=== PATIENT | male | born 1955 | race Caucasian/White ===

== ENCOUNTER 2017-09-19 12:30 | Emergency (ER) | payer BC, OTHER ==
[2017-09-19 12:47] VITALS: TEMP 98.5; BMI 31.4
[2017-09-19] MEDS ORDERED: KETOROLAC TROMETHAMINE 30 MG/1 ML VIAL IM ONE (15:23)
--- NOTE | 2017-09-19 15:45 | PDOC ---
History of Present Illness - General Chief Complaint: Injury Stated Complaint: LEFT LEG PAIN S/P TWISTED ON FRIDAY Time Seen by Provider: 09/19/17 12:40 - History of Present Illness Initial Comments: 09/19/17 15:39 "The patient is a 61 year old male with a significant PMH of opiate abuse on suboxone who presents to the emergency department with 3 day history of left leg pain. The patient reports he was putting his pants on when he began to feel discomfort in his L leg. He denies any popping sensation. Denies falling or twisting his leg. He states that the pain radiates from below his knee to his ankle. Denies any significant swelling. Pt states that the pain is worse with walking and weight bearing. It is alleviated with dangling his foot off the bed. The patient states he went to an urgent care yesterday and was prescribed flexeril. The patient reports he is also taking Ibruprofen. The patient denies recent travel or immobilization. NO h/o DVT/PE. The patient denies chest pain, shortness of breath, headache and dizziness. Denies fever, chills, nausea, vomit, diarrhea and constipation. Denies dysuria, frequency, urgency and hematuria. Allergies: NKA Past surgical history: None reported. Social history: Heroin use. No reported smoker or cigarette use. PCP:None " Past History - Past Medical History Allergies/Adverse Reactions: Allergies Allergy/AdvReac Type Severity Reaction Status Date / Time No Known Allergies Allergy Verified 09/19/17 12:38 Home Medications: Ambulatory Orders Buprenorphine HCl/Naloxone HCl [Suboxone 8 mg-2 mg Sl Tablets] 1 each SL DAILY 09/19/17 Trazodone HCl 50 mg PO HS 09/19/17 COPD: No Liver Disease: Yes (HEP C) Other medical history: sleep issues - Surgical History Cholecystectomy: Yes - Suicide/Smoking/Psychosocial Hx Smoking Status: No Smoking History: Never smoked Number of Cigarettes Smoked Daily: 0 Hx Alcohol Use: No Drug/Substance Use Hx: No Substance Use Type: Heroin Review of Systems - Review of Systems Comments:: 09/19/17 15:41 "GENERAL/CONSTITUTIONAL: No fever or chills. No weakness. HEAD, EYES, EARS, NOSE AND THROAT: No change in vision. No ear pain or discharge. No sore throat. CARDIOVASCULAR: No chest pain or shortness of breath. RESPIRATORY: No cough, wheezing, or hemoptysis. GASTROINTESTINAL: No nausea, vomiting, diarrhea or constipation. GENITOURINARY: No dysuria, frequency, or change in urination. MUSCULOSKELETAL: + LLE pain SKIN: No rash NEUROLOGIC: No headache, vertigo, loss of consciousness, or change in strength/ sensation. ENDOCRINE: No increased thirst. No abnormal weight change. HEMATOLOGIC/LYMPHATIC: No anemia, easy bleeding, or history of blood clots. ALLERGIC/IMMUNOLOGIC: No hives or skin allergy. " *Physical Exam - Vital Signs Last Vital Signs Temp Pulse Resp BP Pulse Ox 98.5 F 87 18 125/87 96 09/19/17 12:37 09/19/17 12:37 09/19/17 12:37 09/19/17 12:37 09/19/17 12:37 - Physical Exam Comments: 09/19/17 15:42 "GENERAL: Awake, alert, and fully oriented, in no acute distress HEAD: No signs of trauma EYES: PERRLA, EOMI, sclera anicteric, conjunctiva clear ENT: Auricles normal inspection, hearing grossly normal, nares patent, oropharynx clear without exudates. Moist mucosa NECK: Nontender, no stepoffs, Normal ROM, supple, no lymphadenopathy, JVD, or masses LUNGS: Breath sounds equal, clear to auscultation bilaterally. No wheezes, and no crackles HEART: Regular rate and rhythm, normal S1 and S2, no murmurs, rubs or gallops ABDOMEN: Soft, nontender, normoactive bowel sounds. No guarding, no rebound. No masses EXTREMITIES: LLE with no edema, no bony tenderness, no calf tenderness, no palpable cords, good distal pulses NEUROLOGICAL: Cranial nerves II through XII intact. 5/5 strength and sensation in all extremities, Normal speech, normal gait, normal cerebellar function SKIN: Warm, Dry, normal turgor, no rashes or lesions noted. " ED Treatment Course - RADIOLOGY Radiology Studies Ordered: Category Date Time Status LEG TIB/FIB-LEFT [RAD] Stat Radiology 09/19/17 15:22 Ordered DUPLEX VASCUL US-1 LEG [US] Stat Ultrasound 09/19/17 15:22 Ordered Medical Decision Making - Medical Decision Making 09/19/17 15:44 61 M with atraumatic L leg pain. Will obtain XR to r/o fx, though pt with no bony tenderness. WIll also r/o DVT with doppler. Pt may have claudication, as pain is relieved with dangling leg off side of bed. Also consider sciatic nerve pain. Pt with good strength on plantarflexion of L foot, no tenderness over achilles to suggest tendon rupture. - LLE doppler - XR L tib/fib - Toradol 09/19/17 16:13 XR and doppler negative on my read. Pt reassessed - now feels much better after toradol Pt is well appearing, with normal vitals. Clinically stable for DC at this time. I discussed the physical exam findings, ancillary test results and final diagnoses with the patient. I answered all of the patient's questions. The patient was satisfied with the care received and felt comfortable with the discharge plan and treatment plan. The patient agrees to follow up with the primary care physician within 24-72 hours. *DC/Admit/Observation/Transfer Diagnosis at time of Disposition: Leg pain - Discharge Dispostion Disposition: HOME Condition at time of disposition: Stable - Referrals Referrals: Juan Frederick MD [Staff Physician] - Gaurang Alston MD [Staff Physician] - - Patient Instructions Printed Discharge Instructions: DI for Sciatica, DI for Leg Pain Additional Instructions: Please follow up with your primary doctor and an orthopedic surgeon within 1 week for further evaluation of your leg pain. Call the numbers provided to make appointments with our primary care doctor and orthopedist. Be sure to rest your leg for the next few days to avoid exacerbating the pain. If you experience worsening pain, swelling, numbness, weakness, or any other concerning symptoms, return to the ER immediately. - Post Discharge Activity Forms/Work/School Notes: Back to Work - Attestations Physician Attestion: 09/19/17 16:15 I, Dr. Gaurang Vela MD, attest that this document has been prepared under my direction and personally reviewed by me in its entirety. I further attest, that it accurately reflects all work, treatment, procedures and medical decision -making performed by me.
[2017-09-19] MEDS ORDERED: KETOROLAC TROMETHAMINE 30 MG/1 ML VIAL ONE (16:16)
[2017-09-19 16:44] VITALS: BP 128/76; PULSE 78
== END 2017-09-19 16:42 | disposition home or self-care (01) ==
LOC: FER 12:36
PROC: 3E013GC Introduction of Other Therapeutic Substance into Subcutaneous Tissue, Percutaneous Approach (ICD-10-PCS; principal; 2017-09-19)
DX: M79.605 Pain in left leg (principal); F11.20 Opioid dependence, uncomplicated; B18.2 Chronic viral hepatitis C
CPT/HCPCS: 73590-TC-LT-FY; 93971-TC; 99281-25

== ENCOUNTER 2020-10-31 16:44 | Emergency (ER) | payer BC, OTHER ==
[2020-10-31 16:55] VITALS: BMI 23.7
[2020-10-31 18:25] VITALS: BP 113/84; PULSE 80
[2020-10-31 18:27] VITALS: TEMP 97.8
== END 2020-10-31 18:51 | disposition home or self-care (01) ==
LOC: JER 16:44
DX: T50.901A Poisoning by unspecified drugs, medicaments and biological substances, accidental (unintentional), initial encounter (principal)
CPT/HCPCS: 82962; 99284-25

== ENCOUNTER 2022-03-05 07:01 | Emergency (ER) | payer OTHER ==
[2022-03-05 07:08] VITALS: BP 140/79; PULSE 130; RESP 25; BMI 33.0
[2022-03-05] MEDS ORDERED: VANCOMYCIN/WATER 1,250 MG/250 ML BAG IVPB ONE (07:09)
[2022-03-05] MEDS ORDERED: PIPERACILLIN/TAZOB 4.5 GM 4.5 GM in DEXTROSE 5%-WATER 100 ML IVPB ONE (07:09)
[2022-03-05] MEDS ORDERED: ACETAMINOPHEN 1000 MG/100 ML BAG IVPB ONE (07:11)
[2022-03-05] MEDS ORDERED: ACETAMINOPHEN INJECTION 100 ML IVPB ONE (07:19)
[2022-03-05] MEDS ORDERED: VANCOMYCIN/WATER FOR INJ (PEG) 1,000 MG/200 ML BAG IVPB ONE (07:20)
[2022-03-05] MEDS ORDERED: LACTATED RINGERS SOLUTION 1000 ML INFUS.BAG IV ONE (07:26)
[2022-03-05 08:15] LABS: VENOUS BASE EXCESS 0.9 mmol/L (-2-2); VENOUS O2 SATURATION 76.8 % (70-80); VENOUS PCO2 40.1 mmHg (38-52); VENOUS PH 7.42 (7.310-7.410)
[2022-03-05 08:35] LABS: BASO % 0.3 % (0-2.0); EOS % 0.1 % (0-4.5); HEMATOCRIT 37.6 % (35.4-49); LYMPH % 5.2 % (8-40); MCH 29.5 pg (25.7-33.7); MCHC 34.5 g/dl (32.0-35.9); MEAN CELL VOLUME 85.6 fl (80-96); MEAN PLT VOLUME 7.1 fl (7.5-11.1); MONO % 7.8 % (3.8-10.2); NEUT % 86.6 % (42.8-82.8); PLATELET COUNT 240 10^3/uL (134-434); RDW 13.8 % (11.9-15.9); WHITE BLOOD COUNT 8.1 K/mm3 (4.0-10.0)
[2022-03-05 08:39] LABS: LACTIC ACID 3.1 mmol/L (0.4-2.0)
[2022-03-05 08:42] LABS: INR 1.12 (0.83-1.09); PROTHROMBIN TIME (PATIENT) 12.9 SEC (9.7-13.0)
[2022-03-05 08:45] LABS: ACTIVATED PTT 28.5 SECONDS (25.2-36.5)
[2022-03-05] MEDS ORDERED: PIPERACILLIN/TAZOB 4.5 GM 4.5 GM/100 ML BAG IVPB ONE (09:01)
[2022-03-05] MEDS ORDERED: VANCOMYCIN/WATER 1250 MG 1,250 MG/250 ML BAG IVPB ONE (09:01)
[2022-03-05 09:05] LABS: CHLORIDE 107 mmol/L (98-107); SODIUM 142 mmol/L (136-145)
[2022-03-05 09:07] LABS: CALCIUM 8.7 mg/dL (8.5-10.1)
[2022-03-05 09:08] LABS: ALBUMIN 3.7 g/dl (3.4-5.0); ANION GAP 11 MMOL/L (8-16); BLOOD UREA NITROGEN 14.6 mg/dL (7-18); CO2 24 mmol/L (21-32); GLUCOSE,RANDOM 154 mg/dL (74-106)
[2022-03-05 09:11] LABS: CREATININE 1.3 mg/dL (0.55-1.3); SGOT/AST 31 U/L (15-37); SGPT/ALT 26 U/L (13-61)
[2022-03-05 09:12] LABS: BILIRUBIN,TOTAL 0.5 mg/dL (0.2-1); TOT PROT 7.1 g/dl (6.4-8.2)
[2022-03-05 09:13] LABS: ALK PHOS 61 U/L (45-117)
[2022-03-05 09:19] VITALS: TEMP 101.7
== END 2022-03-05 10:19 | disposition left against medical advice (07) ==
LOC: JER 07:01
PROC: 3E0333Z Introduction of Anti-inflammatory into Peripheral Vein, Percutaneous Approach (ICD-10-PCS; principal; 2022-03-05)
PROC: 3E03329 Introduction of Other Anti-infective into Peripheral Vein, Percutaneous Approach (ICD-10-PCS; 2022-03-05)
PROC: 3E03329 Introduction of Other Anti-infective into Peripheral Vein, Percutaneous Approach (ICD-10-PCS; 2022-03-05)
DX: S09.90XA Unspecified injury of head, initial encounter (principal); R00.0 Tachycardia, unspecified; R50.9 Fever, unspecified; W01.0XXA Fall on same level from slipping, tripping and stumbling without subsequent striking against object, initial encounter
CPT/HCPCS: 36415; 70450-TC; 71045-TC-FY; 72125-TC; 80053; 80307; 82550; 82553; 82803; 82962; 83605; 84484; 85025; 85610; 85730; 87040; 99291; C9803-CS; U0003; U0005